=== PATIENT | male | born 1980 | race African-American/Black ===

== ENCOUNTER 2017-08-08 21:31 | Emergency (ER) | payer MEDICAID ==
[~2017-08-08] VITALS: Ht 188 cm; Wt 77.3 kg
[2017-08-09] MEDS ORDERED: IBUPROFEN 600MG TABLET PO NR (00:15)
[2017-08-09 00:43] VITALS: BP 114/77
== END 2017-08-09 00:45 | disposition home or self-care (01) ==
LOC: ER 21:41
DX: S19.80XA Other specified injuries of unspecified part of neck, initial encounter (principal); R51 Headache; G40.909 Epilepsy, unspecified, not intractable, without status epilepticus; V47.0XXA Car driver injured in collision with fixed or stationary object in nontraffic accident, initial encounter; Y93.89 Activity, other specified; Y92.89 Other specified places as the place of occurrence of the external cause
CPT/HCPCS: 70450; 70486; 72125; 99284